=== PATIENT | female | born 1985 | race Caucasian/White ===

== ENCOUNTER 2016-10-06 14:50 | Emergency (ER) | payer OTHER ==
--- NOTE | 2016-10-06 16:35 | DIAGNOSTIC IMAGING REPORT ---
PROCEDURE: CTA THORAX WITH CONTRAST INDICATION: Left-sided chest pain. TECHNIQUE: 88 ml of Isovue 370 was injected intravenously and axial images were obtained of the entire thorax with 3D sagittal and coronal MIP reconstructions. COMPARISON: None. FINDINGS: No evidence of pulmonary emboli. Normal lung parenchyma. Mild bilateral hilar adenopathy. No effusion. Normal thoracic aorta without dissection or aneurysm. Normal heart size. Visualized upper abdomen is unremarkable. No suspicious osseous lesions. IMPRESSION: 1. Normal CT pulmonary foramen 2. Results discussed with Dr. Ferreria
--- NOTE | 2016-10-06 16:35 | ED ORDER SUMMARY ---
..... Patient: SAUL TOSCANO OrderSheet [facility] VisitID: [id number] [address] [place] [address] 31y, F Registration Date/Time: 10/06/2016 ORDER SHEET Weight: 40.8 kg (stated) Allergies: Penicillins, Sulfa Antibiotics GENERAL ORDERS: Chest 2V Urgent (15:08 10/06/2016 PHutchinson DO) (Ack 15:09 TBergley) (16:15 Gene) (Cancelled: Other18:18 TBergley) Electric Installer (Continuous) (15:10/06/2016 PHutchinson DO) (15:09 JDeElena R.N.) (15:09 TBergley) UA-Culture if indicated Urgent (15:10/06/2016 PHutchinson DO) (Ack 15:09 TBergley) (15:28 RMarsden R.N.) Cardiac Panel Stat (15:10/06/2016 PHmochinson DO) (15:09 TBergley) BNP Urgent (15:10/06/2016 PHutchinson DO) (15:09 TBergley) D-Dimer Urgent (15:10/06/2016 PHutchinson DO) (15:09 TBergley) Amylase Urgent (15:10/06/2016 PHutchinson DO) (15:09 TBergley) Lipase Urgent (15:10/06/2016 PHutchinson DO) (15:09 TBergley) Urine Urgent (15:10/06/2016 PHutchinson DO) (Ack 15:09 TBergley) (15:28 RMarsden R.N.) Urine Drug Screen Urgent (15:10/06/2016 PHutchinson DO) (Ack 15:09 TBergley) (15:28 RMarsden R.N.) TSH Urgent (15:10/06/2016 PHutchinson DO) (15:09 TBergley) Pulse oximeter (15:10/06/2016 PHutchinson DO) (15:09 JDeElena R.N.) (15:09 TBergley) EKG - ER Stat (15:08 10/06/2016 [facility]) (15:09 JDeElena R.N.) (15:09 TBergley) Vitals (15:08 10/06/2016 [facility] DO) (15:09 JDeElena R.N.) (15:09 TBergley) Ethyl Alcohol Urgent (15:09 10/06/2016 [facility]) (Ack 15:09 TBergley) (15:31 RMarsden R.N.) CTA Thorax w Cont (No) (BUN and Cr normal) (elevated d-dimer) Urgent (15:46 10/06/2016 [facility]) (Ack 15:48 TBergley) (16:09 RMarsden R.N.) POC - Urine hCG (15:47 10/06/2016 [facility]) (15:47 RMarsden R.N.) MEDICATION ORDERS: Potassium Chloride PO 40 meq (NOW) (16:00 10/06/2016 [facility]) (Ack 16:06 RMarsden R.N.) (16:16 RMarsden R.N.) IV FLUIDS: IV NS with Normal Saline 1 Liter, Folic Acid 1 mg/mL, Multivitamin Concentrate Intravenous 1 amp/L, Thiamine HCl 100 mg/L: initial bolus 1000 mL (1000 mL/hr), then TKO - (NOW) (15:08 10/06/2016 [facility]) (Ack 15:10 JDeElena R.N.) (17:02 JDeElena R.N.) Zofran IV 4 mg (NOW) (15:08 10/06/2016 [facility]) (15:09 JDeElena R.N.) Ativan IV 1 mg (HIGH ALERT MEDICATION, NOW) (15:09 10/06/2016 [facility]) (Ack 15:10 JDeElena R.N.) (15:17 JSimbeck R.N.) ORDER SHEET NOTES: [Electronically signed by Felipe Ferreira DO (21:44 10/06/2016)] [Electronically signed by Carmen Najera R.N. (07:10/07/2016)] [Electronically locked/signed by Carmen Najera R.N. (10/07/2016)]
--- NOTE | 2016-10-06 16:35 | ED NURSING NOTES ---
Clinical Report - Nurses [facility] [address] [place] [address] 10/06/2016 14:51 Patient: SAUL TOSCANO TRIAGE Triage time 14:58. Acuity: LEVEL 3. Chief Complaint: CHEST PAIN and NAUSEA (Reports she is w/d from ETOH. Says she has w/d before. Last drink yesterday. Says she is getting ready to check herself in to treatmetn again.). Alert. SEPSIS SCREEN: Sepsis Screen: negative. Negative (no infection suspected/documented). --15:05 Teodoro Cleveland R.N. 14:57 10/06/16. BP: 174/102 (regular adult cuff) taken on the left arm, via an automated monitor, while lying. HR: 70 (normal rate). RR: 22 (regular, unlabored and normal). O2 saturation: 100% on room air. Temp: 98.8 F (oral). Pain level now: 03/05. --15:05 Teodoro Cleveland R.N. Weight: 40.8 kg stated. Height/Length: 64 inches Per Patient. BMI: 15.5. --15:00 Teodoro Cleveland R.N. Medications PROzac Oral. --14:59 Teodoro Cleveland R.N. KlonoPIN Oral. --14:59 Teodoro Cleveland R.N. Medication/allergy information source: the patient. --15:05 Teodoro Cleveland R.N. Allergies Penicillins. --15:00 Teodoro Cleveland R.N. Sulfa Antibiotics. --15:00 Teodoro Cleveland R.N. History Arrived by private vehicle. Historian: patient. Unaccompanied. Primary physician (None). This started today. 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 (1 pain med cannot recall name). PAST MEDICAL HX: Anxiety. Depression. Uses an intrauterine device. SOCIAL HX: Current every day heavy tobacco smoker (cigarette)- less than 1 pack per day. Heavy alcohol use. History of drug use: marijuana. She has not traveled outside the [place] The patient was not exposed to MRSA. ABUSE ASSESSMENT: Abuse assessment: The patient was asked "Do you feel safe in your home?" and "Has anyone hurt you or threatened to hurt you?". No report of abuse. SELF HARM ASSESSMENT: A self harm assessment was performed. The patient answered "yes" to the question "Have you recently felt down, depressed, or hopeless?", "Have you noticed less interest or pleasure in doing things?" and "Do you have thoughts of harming or killing yourself?" and "no" to the question "Are you here because you tried to hurt yourself?", "Have you ever tried to hurt yourself before today?" and "Have you recently had thoughts about harming or killing others?". (Just got out of her relationship with her fiance which spurred the drinking.). FALL RISK ASSESSMENT: Fall risk assessment completed. No fall risk identified. NUTRITIONAL RISK ASSESSMENT: The nutritional risk assessment revealed no deficiencies. LEARNING NEEDS ASSESSMENT: The learning needs assessment revealed no barriers. FUNCTIONAL ASSESSMENT: Functional assessment performed: wears glasses- this visual impairment is an ongoing problem. SKIN INTEGRITY ASSESSMENT: Skin integrity risk assessment completed. No skin integrity risk identified. --15:05 Teodoro Cleveland R.N. PROBLEMS: Depression. Anxiety Reaction. --15:00 Teodoro Cleveland R.N. ADDITIONAL SURGERIES: . Cyst Removal. --15:00 Teodoro Cleveland R.N. Assessment GENERAL / NEURO / PSYCH: Alert. Oriented X 4. Appears anxious and in distress. [place] Coma Scale: 15- eyes open spontaneously (4); best verbal response- oriented x 4 (5); best motor response- obeys commands (6). Patient appears calm and cooperative. RESPIRATORY: No respiratory distress. Respirations not labored. SKIN: Skin is warm and dry. --15:05 Teodoro Cleveland R.N. Interventions ID band on patient. To treatment room. --15:05 Teodoro Cleveland R.N. 15:03 10/06/2016 Site #1 started via IV in the right antecubital space with an 20g angiocath, with aseptic technique and good blood return; one attempt. Blood drawn: rainbow set. Labeled in the presence of the patient and sent to the lab. Saline lock flushed with 10 mL saline. --15:03 Teodoro Cleveland R.N. NURSING PROGRESS NOTES The initial plan of care for this patient has been created This plan of care was discussed with the patient. mule driver, pulse oximeter and NIBP monitor placed on patient; selector packer- Lead II. Patient gowned. Reassurance given to the patient. Two patient identifiers checked. Call light placed in reach. Side rails up x 1. Bed placed in lowest position. Brakes of bed on. Patient ready for evaluation- ED physician and PA notified. --15:05 Teodoro Cleveland R.N. EKG time: (2708). EKG was ordered, performed by a tech and shown to the ED physician and PA. --15:06 Teodoro Cleveland R.N. 15:10/06/2016 Zofran (Ondansetron HCl) IVP 4 mg given over 2 minute(s) via site #1. Allergies verified and confirmed 5 rights. IV patency established. IV site checked: no pain, redness, or swelling. IV flushed thoroughly pre- and post-medication administration. IVP given by RN. --15: Teodoro Cleveland R.N. 15:15 10/06/2016 Ativan (LORazepam) IVP 1 mg given over 1 minute(s) via site #1. Allergies verified, confirmed 5 rights and sedative warning given to the patient. IV patency established. IV site checked: no pain, redness, or swelling. IV flushed thoroughly pre- and post-medication administration. IVP given by RN. --15:17 Zachary Perez R.N. 15:15 10/06/16. BP: 113/52 (regular adult cuff) taken on the left arm, while sitting. --15:19 Zachary Perez R.N. Patient ID band checked for patient name and birthdate: patient confirmed. Instructions provided to collect clean catch urine and patient verbalized understanding. Clean catch urine collected with return of yellow-colored clear urine; sample sent to lab for urinalysis. Specimen labeled in the presence of the patient. --15:29 Carmen Najera R.N. 15:30 10/06/16. Patient informed about reason for wait and about plan of care. --15:30 Carmen Najera R.N. 15:50 10/06/16. BP: 124/79. HR: 80. RR: 12. O2 saturation: 99%. Pain level now: 0/10. Additional comments: Patient states she has some dental pain. --15:52 Carmen Najera R.N. 13:27. Urine test negative; lot #: [id number]. --16:10 Carmen Najera R.N. 15:33 10/06/2016 Ativan IVP Response: no adverse reaction symptoms have improved the patient feels better. --07:19 Carmen Najera R.N. 15:56 10/06/16. Patient walked to AL with tech. ( Patient given ice water.). --15:57 Carmen Najera R.N. 16:16 10/06/2016 Potassium Chloride (Potassium Chloride ER) PO Tablets 40 meq given. Allergies verified and confirmed 5 rights. --16:16 Carmen Najera R.N. 16:37 10/06/2016 Potassium Chloride PO Response: no adverse reaction symptoms are the same. The patient feels the same. --07:20 Carmen Najera R.N. 17:02 10/06/2016 Started bag #1 1000 mL IV Fluids IV NS (Saline); at 1000 mL/hr with Folic Acid [IVPB] 1mg, Multivitamin [IVPB] 1per protocol and Thiamine [IVP] 100mg over 1 hour(s) via site #1. Allergies verified and confirmed 5 rights. IV patency established. IV site checked: no pain, redness, or swelling. IV flushed thoroughly pre- and post-medication administration. Completed per protocol. --17:02 Teodoro Cleveland R.N. Patient informed about reason for wait and about plan of care. --17:30 Carmen Najera R.N. 17:46 10/06/16. --17:46 Ada Manley R.N. 17:30 10/06/16. BP: 133/90. HR: 82. RR: 17. O2 saturation: 99% on room air. --17:46 Ada Manley R.N. 18:08 10/06/2016 IV Fluids IV NS Discontinued: bag #1 completed upon discharge. Total amount infused: 1000 mL. IV patency established. IV site checked: no pain, redness, or swelling. IV flushed thoroughly. --07:18 Carmen Najera R.N. DISPOSITION / DISCHARGE 18:10. No learning barriers present. Discharge instructions provided and reviewed with the patient. Reviewed warnings. Reviewed medication(s). Treatments reviewed. Reviewed referrals. Patient verbalized understanding. Written instructions provided in Romanian. The patient was discharged by the physician. She was discharged home and accompanied by accountant bookkeeper. She left the Emergency Department ambulatory and via private vehicle. Platform Material Handling Supervisor driving. --07:13 Carmen Najera R.N. 07:11 10/06/16. BP: 132/73. HR: 86. RR: 16. O2 saturation: 100%. Temp: deferred. Pain level now: 0/10. --07:13 Carmen Najera R.N. ( Patient departed at 18:10 on 10/06/2016.). --07:14 Carmen Najera R.N. 18:08 10/06/2016 Site #1 removed upon discharge. Manual pressure and bandaid applied. --07:18 Carmen Najera R.N. Locked/Released at 10/07/2016 7:20 by Carmen Najera R.N.
--- NOTE | 2016-10-06 16:35 | ED NURSING NOTES ---
Clinical Report - Nurses [facility] [address] [place] [address] 10/06/2016 14:51 Patient: SAUL TOSCANO TRIAGE Triage time 14:58. Acuity: LEVEL 3. Chief Complaint: CHEST PAIN and NAUSEA (Reports she is w/d from ETOH. Says she has w/d before. Last drink yesterday. Says she is getting ready to check herself in to treatmetn again.). Alert. SEPSIS SCREEN: Sepsis Screen: negative. Negative (no infection suspected/documented). --15:05 Teodoro Cleveland R.N. 14:57 10/06/16. BP: 174/102 (regular adult cuff) taken on the left arm, via an automated monitor, while lying. HR: 70 (normal rate). RR: 22 (regular, unlabored and normal). O2 saturation: 100% on room air. Temp: 98.8 F (oral). Pain level now: 03/05. --15:05 Teodoro Cleveland R.N. Weight: 40.8 kg stated. Height/Length: 64 inches Per Patient. BMI: 15.5. --15:00 Teodoro Cleveland R.N. Medications PROzac Oral. --14:59 Teodoro Cleveland R.N. KlonoPIN Oral. --14:59 Teodoro Cleveland R.N. Medication/allergy information source: the patient. --15:05 Teodoro Cleveland R.N. Allergies Penicillins. --15:00 Teodoro Cleveland R.N. Sulfa Antibiotics. --15:00 Teodoro Cleveland R.N. History Arrived by private vehicle. Historian: patient. Unaccompanied. Primary physician (None). This started today. 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 (1 pain med cannot recall name). PAST MEDICAL HX: Anxiety. Depression. Uses an intrauterine device. SOCIAL HX: Current every day heavy tobacco smoker (cigarette)- less than 1 pack per day. Heavy alcohol use. History of drug use: marijuana. She has not traveled outside the [place] The patient was not exposed to MRSA. ABUSE ASSESSMENT: Abuse assessment: The patient was asked "Do you feel safe in your home?" and "Has anyone hurt you or threatened to hurt you?". No report of abuse. SELF HARM ASSESSMENT: A self harm assessment was performed. The patient answered "yes" to the question "Have you recently felt down, depressed, or hopeless?", "Have you noticed less interest or pleasure in doing things?" and "Do you have thoughts of harming or killing yourself?" and "no" to the question "Are you here because you tried to hurt yourself?", "Have you ever tried to hurt yourself before today?" and "Have you recently had thoughts about harming or killing others?". (Just got out of her relationship with her fiance which spurred the drinking.). FALL RISK ASSESSMENT: Fall risk assessment completed. No fall risk identified. NUTRITIONAL RISK ASSESSMENT: The nutritional risk assessment revealed no deficiencies. LEARNING NEEDS ASSESSMENT: The learning needs assessment revealed no barriers. FUNCTIONAL ASSESSMENT: Functional assessment performed: wears glasses- this visual impairment is an ongoing problem. SKIN INTEGRITY ASSESSMENT: Skin integrity risk assessment completed. No skin integrity risk identified. --15:05 Teodoro Cleveland R.N. PROBLEMS: Depression. Anxiety Reaction. --15:00 Teodoro Cleveland R.N. ADDITIONAL SURGERIES: . Cyst Removal. --15:00 Teodoro Cleveland R.N. Assessment GENERAL / NEURO / PSYCH: Alert. Oriented X 4. Appears anxious and in distress. [place] Coma Scale: 15- eyes open spontaneously (4); best verbal response- oriented x 4 (5); best motor response- obeys commands (6). Patient appears calm and cooperative. RESPIRATORY: No respiratory distress. Respirations not labored. SKIN: Skin is warm and dry. --15:05 Teodoro Cleveland R.N. Interventions ID band on patient. To treatment room. --15:05 Teodoro Cleveland R.N. 15:03 10/06/2016 Site #1 started via IV in the right antecubital space with an 20g angiocath, with aseptic technique and good blood return; one attempt. Blood drawn: rainbow set. Labeled in the presence of the patient and sent to the lab. Saline lock flushed with 10 mL saline. --15:03 Teodoro Cleveland R.N. NURSING PROGRESS NOTES The initial plan of care for this patient has been created This plan of care was discussed with the patient. ekg monitor tech, pulse oximeter and NIBP monitor placed on patient; child monitor- Lead II. Patient gowned. Reassurance given to the patient. Two patient identifiers checked. Call light placed in reach. Side rails up x 1. Bed placed in lowest position. Brakes of bed on. Patient ready for evaluation- ED physician and PA notified. --15:05 Teodoro Cleveland R.N. EKG time: (6158). EKG was ordered, performed by a tech and shown to the ED physician and PA. --15:06 Teodoro Cleveland R.N. 15:10/06/2016 Zofran (Ondansetron HCl) IVP 4 mg given over 2 minute(s) via site #1. Allergies verified and confirmed 5 rights. IV patency established. IV site checked: no pain, redness, or swelling. IV flushed thoroughly pre- and post-medication administration. IVP given by RN. --15: Teodoro Cleveland R.N. 15:15 10/06/2016 Ativan (LORazepam) IVP 1 mg given over 1 minute(s) via site #1. Allergies verified, confirmed 5 rights and sedative warning given to the patient. IV patency established. IV site checked: no pain, redness, or swelling. IV flushed thoroughly pre- and post-medication administration. IVP given by RN. --15:17 Zachary Perez R.N. 15:15 10/06/16. BP: 113/52 (regular adult cuff) taken on the left arm, while sitting. --15:19 Zachary Perez R.N. Patient ID band checked for patient name and birthdate: patient confirmed. Instructions provided to collect clean catch urine and patient verbalized understanding. Clean catch urine collected with return of yellow-colored clear urine; sample sent to lab for urinalysis. Specimen labeled in the presence of the patient. --15:29 Carmen Najera R.N. 15:30 10/06/16. Patient informed about reason for wait and about plan of care. --15:30 Carmen Najera R.N. 15:50 10/06/16. BP: 124/79. HR: 80. RR: 12. O2 saturation: 99%. Pain level now: 0/10. Additional comments: Patient states she has some dental pain. --15:52 Carmen Najera R.N. 13:27. Urine test negative; lot #: [id number]. --16:10 Carmen Najera R.N. 15:33 10/06/2016 Ativan IVP Response: no adverse reaction symptoms have improved the patient feels better. --07:19 Carmen Najera R.N. 15:56 10/06/16. Patient walked to [place] with tech. ( Patient given ice water.). --15:57 Carmen Najera R.N. 16:16 10/06/2016 Potassium Chloride (Potassium Chloride ER) PO Tablets 40 meq given. Allergies verified and confirmed 5 rights. --16:16 Carmen Najera R.N. 16:37 10/06/2016 Potassium Chloride PO Response: no adverse reaction symptoms are the same. The patient feels the same. --07:20 Carmen Najera R.N. 17:02 10/06/2016 Started bag #1 1000 mL IV Fluids IV NS (Saline); at 1000 mL/hr with Folic Acid [IVPB] 1mg, Multivitamin [IVPB] 1per protocol and Thiamine [IVP] 100mg over 1 hour(s) via site #1. Allergies verified and confirmed 5 rights. IV patency established. IV site checked: no pain, redness, or swelling. IV flushed thoroughly pre- and post-medication administration. Completed per protocol. --17:02 Teodoro Cleveland R.N. Patient informed about reason for wait and about plan of care. --17:30 Carmen Najera R.N. 17:46 10/06/16. --17:46 Ada Manley R.N. 17:30 10/06/16. BP: 133/90. HR: 82. RR: 17. O2 saturation: 99% on room air. --17:46 Ada Manley R.N. 18:08 10/06/2016 IV Fluids IV NS Discontinued: bag #1 completed upon discharge. Total amount infused: 1000 mL. IV patency established. IV site checked: no pain, redness, or swelling. IV flushed thoroughly. --07:18 Carmen Najera R.N. DISPOSITION / DISCHARGE 18:10. No learning barriers present. Discharge instructions provided and reviewed with the patient. Reviewed warnings. Reviewed medication(s). Treatments reviewed. Reviewed referrals. Patient verbalized understanding. Written instructions provided in Palauan. The patient was discharged by the physician. She was discharged home and accompanied by business systems architect. She left the Emergency Department ambulatory and via private vehicle. Director Of Graduate Admissions driving. --07:13 Carmen Najera R.N. 07:11 10/06/16. BP: 132/73. HR: 86. RR: 16. O2 saturation: 100%. Temp: deferred. Pain level now: 0/10. --07:13 Carmen Najera R.N. ( Patient departed at 18:10 on 10/06/2016.). --07:14 Carmen Najera R.N. 18:08 10/06/2016 Site #1 removed upon discharge. Manual pressure and bandaid applied. --07:18 Carmen Najera R.N. Locked/Released at 10/07/2016 7:20 by Carmen Najera R.N.
--- NOTE | 2016-10-06 16:35 | ED ORDER SUMMARY ---
..... Patient: SAUL TOSCANO OrderSheet [facility] VisitID: [id number] [address] [place] [address] 31y, F Registration Date/Time: 10/06/2016 ORDER SHEET Weight: 40.8 kg (stated) Allergies: Penicillins, Sulfa Antibiotics GENERAL ORDERS: Chest 2V Urgent (15:08 10/06/2016 PHutchinson DO) (Ack 15:09 TBergley) (16:15 Gene) (Cancelled: Other18:18 TBergley) Manager Web (Continuous) (15:10/06/2016 PHutchinson DO) (15:09 JDeElena R.N.) (15:09 TBergley) UA-Culture if indicated Urgent (15:10/06/2016 PHutchinson DO) (Ack 15:09 TBergley) (15:28 RMarsden R.N.) Cardiac Panel Stat (15:10/06/2016 PHohchinson DO) (15:09 TBergley) BNP Urgent (15:10/06/2016 PHutchinson DO) (15:09 TBergley) D-Dimer Urgent (15:10/06/2016 PHutchinson DO) (15:09 TBergley) Amylase Urgent (15:10/06/2016 PHutchinson DO) (15:09 TBergley) Lipase Urgent (15:10/06/2016 PHutchinson DO) (15:09 TBergley) Urine Urgent (15:10/06/2016 PHutchinson DO) (Ack 15:09 TBergley) (15:28 RMarsden R.N.) Urine Drug Screen Urgent (15:10/06/2016 PHutchinson DO) (Ack 15:09 TBergley) (15:28 RMarsden R.N.) TSH Urgent (15:10/06/2016 PHutchinson DO) (15:09 TBergley) Pulse oximeter (15:10/06/2016 PHutchinson DO) (15:09 JDeElena R.N.) (15:09 TBergley) EKG - ER Stat (15:08 10/06/2016 [facility]) (15:09 JDeElena R.N.) (15:09 TBergley) Vitals (15:08 10/06/2016 [facility] DO) (15:09 JDeElena R.N.) (15:09 TBergley) Ethyl Alcohol Urgent (15:09 10/06/2016 [facility]) (Ack 15:09 TBergley) (15:31 RMarsden R.N.) CTA Thorax w Cont (No) (BUN and Cr normal) (elevated d-dimer) Urgent (15:46 10/06/2016 [facility]) (Ack 15:48 TBergley) (16:09 RMarsden R.N.) POC - Urine hCG (15:47 10/06/2016 [facility]) (15:47 RMarsden R.N.) MEDICATION ORDERS: Potassium Chloride PO 40 meq (NOW) (16:00 10/06/2016 [facility]) (Ack 16:06 RMarsden R.N.) (16:16 RMarsden R.N.) IV FLUIDS: IV NS with Normal Saline 1 Liter, Folic Acid 1 mg/mL, Multivitamin Concentrate Intravenous 1 amp/L, Thiamine HCl 100 mg/L: initial bolus 1000 mL (1000 mL/hr), then TKO - (NOW) (15:08 10/06/2016 [facility]) (Ack 15:10 JDeElena R.N.) (17:02 JDeElena R.N.) Zofran IV 4 mg (NOW) (15:08 10/06/2016 [facility]) (15:09 JDeElena R.N.) Ativan IV 1 mg (HIGH ALERT MEDICATION, NOW) (15:09 10/06/2016 [facility]) (Ack 15:10 JDeElena R.N.) (15:17 JSimbeck R.N.) ORDER SHEET NOTES: [Electronically signed by Felipe Ferreira DO (21:44 10/06/2016)] [Electronically signed by Carmen Najera R.N. (07:10/07/2016)] [Electronically locked/signed by Carmen Najera R.N. (10/07/2016)]
--- NOTE | 2016-10-06 16:35 | ED CLINICAL REPORT ---
Clinical Report - Physicians/Mid Levels [facility] [address] [place] [address] 10/06/2016 14:51 Patient: SAUL TOSCANO Time Seen: 15:07. Arrived- By private vehicle. Historian- patient. HISTORY OF PRESENT ILLNESS Chief Complaint: CHEST PAIN and NAUSEA ALCOHOL WITHDRAWAL. This started today and is still present. It was gradual in onset and has been waxing/waning. At its maximum, severity described as moderate. When seen in the E.D., severity described as moderate. Modifying factors. Not worsened by anything. Not relieved by anything. No headache. She has had fatigue and weakness. (Pt states she is having a typical panic attack for her and has come to the ED to "feel safe". She states she "always" has CP with her panic attacks.). Similar symptoms previously: Many times. Recent medical care: Not recently seen/assessed. REVIEW OF SYSTEMS No fever, sore throat, sinus drainage, nasal congestion or difficulty breathing. No abdominal pain, nausea, vomiting, diarrhea or bloody stools. No difficulty with urination, abnormal bleeding, skin rash, back pain or headache. The patient has had chest pain. No difficulty with ambulation. All systems otherwise negative, except as recorded above. PAST HISTORY Sees [facility] for psychiatric services PROBLEMS: Depression. Anxiety Reaction. SURGERIES: . Cyst Removal. Medications: KlonoPIN Oral. PROzac Oral. Allergies: Penicillins. Sulfa Antibiotics. SOCIAL HISTORY Smoker- current status unknown. Regular heavy alcohol use. Last drink was less than 24 hours ago. Patient is a longstanding alcoholic. History of drug use: marijuana. ADDITIONAL NOTES The nursing notes have been reviewed. PHYSICAL EXAM Vital Signs: 10/06/2016 15:15 BP: 113/52. 10/06/2016 14:57 BP: 174/102. HR: 70. RR: 22. O2 saturation: 100%. Temp: 98.8 F. Pain level now: 10/10. Appearance: Alert. Anxious. Patient in moderate distress. Eyes: Eyes normal inspection. No scleral icterus or pale conjunctivae. ENT: Pharynx normal. No pharyngeal erythema or tonsillar exudate. The mucous membranes are not dry. Neck: Normal inspection. Neck supple. CVS: Normal heart rate and rhythm. Heart sounds normal. Pulses normal. Respiratory: No respiratory distress. Breath sounds normal. Abdomen: No visible injury. Soft and nontender. No mass. Back: Normal inspection. Skin: Skin warm and dry. Normal skin color. No rash. Normal skin turgor. Extremities: Extremities exhibit normal ROM. No calf tenderness. No lower extremity edema. Neuro: Oriented X 3. No motor deficit. No sensory deficit. LABS, X-RAYS, AND EKG EKG: EKG time: (15:08). Normal sinus rhythm. Rate: 65. Normal P waves. Normal GERA. Normal QRS complex. Normal axis. Normal ST and T waves. The study has been interpreted contemporaneously by me. The EKG appears to be a good tracing. Rhythm Strip #1: Normal sinus rhythm. Regular rhythm. Narrow QRS complexes. No ectopy. CTA Pulmonary Arteries: Normal study. Great vessels normal. No evidence of pulmonary embolism. Normal heart size. Mediastinum normal. Lungs normal. The CTA was performed with contrast. The study was independently viewed by me, interpreted by the radiologist and discussed with the radiologist. Laboratory Tests: UA-Culture if indicated: (AKIRA: 10/06/2016 15:20) ( MsgRcvd 10/06/2016 16:15) Final results Test Result Flag Units (Reference) URINE COLOR YELLOW URINE APPEARANCE SL CLOUDY URINE GLUCOSE NEGATIVE (NEGATIVE) URINE BILIRUBIN NEGATIVE (NEGATIVE) URINE KETONE 1+ (NEGATIVE) URINE SPECIFIC GRAVITY 1.025 (1.010-1.030) URINE PH 6.0 (5.0-8.0) URINE PROTEIN 2+ (NEGATIVE) URINE UROBILINOGEN 0.2 EU/dL (0.2-1.0) URINE NITRITE NEGATIVE (NEGATIVE) URINE BLOOD 1+ (NEGATIVE) URINE LEUK ESTERASE NEGATIVE (NEGATIVE) URINE RBC 3-5 rbc/hpf (0-1) URINE WBC 0-1 wbc/hpf (0-1) URINE EPITHELIAL CELLS 10-15 EPI/hpf (0-5) URINE BACTERIA NONE SEEN (NONE SEEN) URINE COMMENT CULT NOT INDICATED 2+ MUCUSURINE CULTURES ARE SET-UP BASED ON THE FOLLOWING CRITERIA:POSITIVE NITRITEPOSITIVE LEUKOCYTE ESTERASEGREATER THAN 10 WHITE BLOOD CELLSMODERATE (2+) OR GREATER BACTERIA Urine: (AKIRA: 10/06/2016 15:20) ( [facility] 10/06/2016 15:52) Final results Test Result Flag Units (Reference) URINE NEGATIVE CBC w Diff: (AKIRA: 10/06/2016 15:00) ( [facility] 10/06/2016 15:25) Final results Test Result Flag Units (Reference) WHITE BLOOD COUNT 4.9 K/uL (4.5-11.5) RED BLOOD COUNT 4.05 M/uL (4.00-5.20) HEMOGLOBIN 13.7 gm/dL (12.0-16.0) HEMATOCRIT 40.5 % (36.0-46.0) MEAN CELL VOLUME 100 fL (80-100) MEAN CORPUSCULAR HGB 34 pg (26-34) MEAN CORPUSCULAR HGB CONC 34 g/dL (31-37) RED CELL DISTRIBUTION WIDTH 14.1 % (11.6-14.8) PLATELET COUNT 213 K/uL (150-400) NEUTROPHIL % 73.2 % (50-75) LYMPH % 19.2 L % (25-40) MONO % 6.1 % (3-14) EOSINOPHIL % 0.3 % (0-4) BASOPHIL % 1.2 % (0-2) [id number]: (AKIRA: 10/06/2016 15:00) ( [facility] 10/06/2016 15:44) Final results Test Result Flag Units (Reference) D-DIMER QUANTITATIVE 1.20 H ug/mLFEU (0.27-0.52) The primary value of this quantitative assay relates toits negative predictive value (i.e. exclusion) of pulmonaryembolism/deep vein thrombosis/DIC.Elevated levels of d-dimer may also occur with:, age, cancer, inflammation, liver disease,post-op, infection, hematoma, coronary disease, peripheralarteriopathy, bleeding disorders and thrombolytic treatment.Results should be correlated with other clinical andradiological data.Testing Methodology: Latex Immunoassay Ethyl Alcohol: (AKIRA: 10/06/2016 15:00) ( [facility] 10/06/2016 15:54) Final results Test Result Flag Units (Reference) ETHYL ALCOHOL 11 H mg/dL (3-10) Urine Drug Screen: (AKIRA: 10/06/2016 15:20) ( [facility] 10/06/2016 15:54) Final results Test Result Flag Units (Reference) AMPHETAMINE/METHAMPHETAMINE NEGATIVE (NEGATIVE) BARBITURATE NEGATIVE (NEGATIVE) BENZODIAZEPINE NEGATIVE (NEGATIVE) CANNABINOID POSITIVE H (NEGATIVE) COCAINE NEGATIVE (NEGATIVE) ECSTASY NEGATIVE (NEGATIVE) METHADONE NEGATIVE (NEGATIVE) OPIATE NEGATIVE (NEGATIVE) The urine drug screen is a qualitative screening test fordrug overdose and abuse. All screen results should beconsidered as presumptive.Drugs screened for are as follows:BenzodiazepinesCocaineAmphetamines/MetamphetaminesTHC (Tetrahydrocannabinol)OpiatesBarbituratesEcstasyMethadonePositive results are unconfirmed. For confirmation, notifythe lab for the specimen to be sent to the reference lab.All confirmations must be performed by a differentmethodology.The ingestion of natural herbal and plant productscontaining Ephedra/Ephedra metabolites can produce in urineone or more substances capable of cross reacting withamphetamine/methamphetamine immunoassays. These testsprovide a preliminary result only. A more specificalternative chemical method must be used to obtain aconfirmed analytical result. BNP: (AKIRA: 10/06/2016 15:00) ( [facility] 10/06/2016 15:52) Final results Test Result Flag Units (Reference) B-TYPE NATRIURETIC PEPTIDE 22.5 pg/ml (5-100) CHEM 13 PANEL: (AKIRA: 10/06/2016 15:00) ( [facility] 10/06/2016 16:20) Final results Test Result Flag Units (Reference) GLUCOSE 88 mg/dL (70-110) BUN 10 mg/dL (7-18) CREATININE 0.5 L mg/dL (0.6-1.3) Estimated GFR >60 mL/min Estimated GFR- >60 mL/min Note: Persistent reduction over 3 months in eGFR<60 mL/min/1.73 m2 defines CKD. Patients with eGFR values>=60 mL/min/1.73 m2 may also have CKD if evidence ofpersistent proteinuria. Additional information may be foundat [email or web address].org. SODIUM 142 mmol/L (136-145) POTASSIUM 3.2 L mmol/L (3.5-5.1) CHLORIDE 102 mmol/L (98-107) CARBON DIOXIDE 27 mmol/L (21-32) CALCIUM 8.6 mg/dL (8.5-10.1) TOTAL PROTEIN 8.5 H g/dL (6.4-8.2) ALBUMIN 4.5 g/dL (3.3-5.0) BILIRUBIN, TOTAL 0.9 mg/dL (0.0-1.0) ALKALINE PHOSPHATASE 115 U/L (46-116) AST (SGOT) 44 H U/L (15-37) ALT (SGPT) 41 U/L (12-78) CPK 322 H U/L (24-260) MAGNESIUM 1.6 L mg/dL (1.8-2.4) LIPASE 120 U/L (73-393) AMYLASE 48 U/L (25-115) CK-MB 2.4 ng/mL (0.5-3.2) %CKMB 0.7 % (0.0-4.0) TROPONIN I <0.05 L ng/mL (0.00-1.5) TROPONIN REFERENCE RANGE:<0.1 NEGATIVE0.1-1.5 INDETERMINANT>1.5 POSITIVE THYROID STIMULATING HORMONE 1.375 uIU/mL (0.34-3.74) . Pulse Oximetry: 10/06/2016 14:57 O2 saturation: 100%. (FIO2 - room air). Interpretation: normal. PROGRESS AND PROCEDURES Course of Care: Normal Saline 1 liter with thiamine 100mg + folate 1mg + 1 amp MVI IVPB given. Ativan 1mg IVP given. Potassium Chloride 40 meq PO given. Zofran 4 mg IVP given. 16:00 10/06/16. Patient is stable. Physical exam findings are improved. Symptoms much better. 10/06/2016 17:30 BP: 133/90. HR: 82. RR: 17. O2 saturation: 99%. 10/06/2016 17:00 BP: 123/77. HR: 76. RR: 15. O2 saturation: 99%. Patient/family counseled. Disposition: Discharged. Condition: stable and improved. CLINICAL IMPRESSION Precordial chest pain characterized as "discomfort" .12 lead EKG performed. Essential hypertension. Panic attack Chronic substance abuse- alcohol, marijuana with anxiety. Alcohol withdrawal with agitation. No delirium, hallucinations or delirium tremens. INSTRUCTIONS Do not work for two days. Drink plenty of fluids. No alcohol. Seek medical help to quit drinking. Warnings: Further evaluation is necessary. It is very important to follow up with a physician. GENERAL WARNINGS: Return or contact your physician immediately if your condition worsens or changes unexpectedly, if not improving as expected, or if other problems arise. Prescription Medications: Ativan 1 mg: Take 1 orally every 8 hours as needed for anxiety. Dispense fifteen (15). No refills. Substitution is permissible. OTC Medications: Acetaminophen (available over the counter): take according to label instructions. Follow-up: Follow up with a specialist PLEASE GO TO DETOX / TREATMENT TOMORROW. Screening today revealed the patient's blood pressure to be in the hypertensive range. The patient should follow up with a primary care provider for blood pressure management. (Electronically signed by Felipe Ferreira DO 10/06/2016 21:44)
--- NOTE | 2016-10-07 07:21 | ED MAR SUMMARY ---
..... Medication Administration Record [facility] [address] [address] Patient: SAUL TOSCANO Visit ID: [id number] 31y, F Weight: 40.8 kg Height/Length: 64 in BMI: 15.5 ALLERGIES: Sulfa Antibiotics, Penicillins Given 15:09 10/06/2016 Teodoro Cleveland R.N. Medication Administered: ZOFRAN [IVP] (ONDANSETRON HCL), Dose: 4 mg IVP over 2 minute(s), Site: #1 right AC. Medication Ordered: Zofran IV 4 mg (NOW). Given 15:15 10/06/2016 Zachary Perez R.N. Medication Administered: ATIVAN [IVP] (LORAZEPAM), Dose: 1 mg IVP over 1 minute(s), Site: #1 right AC. Medication Ordered: Ativan IV 1 mg (HIGH ALERT MEDICATION, NOW). Given 16:16 10/06/2016 Carmen Najera R.N. Medication Administered: POTASSIUM CHLORIDE [PO] (POTASSIUM CHLORIDE ER), Dose: 40 meq Tablets PO. Medication Ordered: Potassium Chloride PO 40 meq (NOW). Start 17:02 10/06/2016 Teodoro Cleveland R.N., Stop 18:08 10/06/2016 Carmen Najera R.N. Medication Administered: IV NS (SALINE), Dose: IV Fluids over 1 hour(s), With: FOLIC ACID [IVPB] 1 mg; MULTIVITAMIN [IVPB] 1 per protocol; THIAMINE [IVP] 100 mg, Rate: 1000 mL/hr, Dispensed: 1000 mL bag, Site: #1 right AC. Medication Ordered: IV NS with Normal Saline 1 Liter, Folic Acid 1 mg/mL, Multivitamin Concentrate Intravenous 1 amp/L, Thiamine HCl 100 mg/L: initial bolus 1000 mL (1000 mL/hr), then TKO - (NOW).
--- NOTE | 2016-10-07 07:21 | ED DISCHARGE INSTRUCTIONS ---
Patient: SAUL TOSCANO General Instructions [facility] VisitID: [id number] [place] [address] 31y, F Registration Date/Time: 10/06/2016 Precordial chest pain characterized as "discomfort" .12 lead EKG performed. Essential hypertension. Panic attack Chronic substance abuse- alcohol, marijuana with anxiety. Alcohol withdrawal with agitation. No delirium, hallucinations or delirium tremens. INSTRUCTIONS Do not work for two days. Drink plenty of fluids. No alcohol. Seek medical help to quit drinking. Warnings: Further evaluation is necessary. It is very important to follow up with a physician. GENERAL WARNINGS: Return or contact your physician immediately if your condition worsens or changes unexpectedly, if not improving as expected, or if other problems arise. Prescription Medications: Ativan 1 mg: Take 1 orally every 8 hours as needed for anxiety. Dispense fifteen (15). No refills. Substitution is permissible. OTC Medications: Acetaminophen (available over the counter): take according to label instructions. Follow-up: Follow up with a specialist PLEASE GO TO DETOX / TREATMENT TOMORROW. Screening today revealed the patient's blood pressure to be in the hypertensive range. The patient should follow up with a primary care provider for blood pressure management. ADDITIONAL INFORMATION High Blood Pressure -- To Be Confirmed [No Tx] Your blood pressure was higher today than normal. Sometimes anxiety or pain can cause a temporary rise in blood pressure that later returns to normal. If your blood pressure is high on one measurement, this does not mean that you have hypertension (a chronic illness). However, you must have your blood pressure measured again within the next few days to find out if its still high. A normal blood pressure is 120/80 or less. The first (top) number is the "systolic" pressure. The second (bottom) number is the "diastolic" pressure. Hypertension exists when either the top number is 140 or higher, OR the bottom number is 90 or higher on repeated measurements. Blood pressure in the range of 120-140 (systolic) or 80-89 (diastolic) is considered "pre-hypertension". This means your are at risk for getting hypertension. You should have regular blood pressure checks to be sure your blood pressure is not rising. Home Care: Measure your blood pressure on 3 different days and write down the results. This can be done at your doctor's office or this facility. Some pharmacies and grocery stores offer automated blood pressure machines for your use. Follow Up: If your blood pressure is "high" (over 120/80) on 2 out of 3 days, you will need to follow up with your doctor for further evaluation and treatment. DO NOT PUT THIS OFF! Untreated high blood pressure increases the risk for heart attack, also known as acute myocardial infarction, or AMI, and stroke. It is a treatable condition. Get Prompt Medical Attention if any of the following occur: Chest pain or shortness of breath Severe headache Throbbing or rushing sound in the ears Nosebleed Sudden severe abdominal pain Extreme drowsiness, confusion or fainting Dizziness or vertigo (dizziness with spinning sensation) Weakness of an arm or leg or one side of the face Difficulty with speech or vision Chest Pain, Noncardiac Based on your visit today, the exact cause of your chest pain is not certain. Your condition does not seem serious and your pain does not appear to be coming from your heart. However, sometimes the signs of a serious problem take more time to appear. Therefore, please watch for the warning signs listed below. Home Care: Rest today and avoid strenuous activity. Take any prescribed medicine as directed. Follow Up with your doctor or this facility as instructed or if you do not start to feel better within 24 hours. Get Prompt Medical Attention if any of the following occur: A change in the type of pain: if it feels different, becomes more severe, lasts longer, or begins to spread into your shoulder, arm, neck, jaw or back Shortness of breath or increased pain with breathing Cough with dark colored sputum (phlegm) or blood Weakness, dizziness, or fainting Fever of 100.4F (38C) or higher, or as directed by your healthcare provider Swelling, pain or redness in one leg Panic Attack A panic attack is an extreme fear reaction that comes on for no apparent reason. Symptoms may include pounding or racing heartbeat, shortness of breath, dizziness, weakness and sweating. There is usually a fear that something terrible will happen or that you may . The attack may last a few minutes up to a few hours. Between attacks things will seem quite normal. This condition has a psychological cause and can be treated with the help of a therapist or psychiatrist. Medication is often used and can be very helpful for this problem. Home Care: Try to identify the sources of stress in your life. It may not be obvious! These may include: Daily hassles of life which pile up (traffic jams, missed appointments, car troubles, etc.). Major life changes, both good (new baby, job promotion) and bad (loss of job, loss of loved one). Overload: feeling that you have too many responsibilities and can't take care of everything at once. Helplessness: feeling like your problems are too much for you to handle. Notice how your body reacts to stress. Learn to listen to your body signals so that you can take action before the stress becomes severe. When possible, AVOID or REDUCE THE CAUSE OF STRESS. Avoid hassles, limit the amount of change that is happening in your life at one time or take a break when you feel overloaded. Unfortunately, many stressful situations cannot be avoided. Therefore, it is necessary to LEARN HOW TO MANAGE STRESS better. There are many proven methods that work and will reduce your anxiety. These include simple things like exercise, good nutrition and adequate rest. Also, there are certain techniques that are helpful: relaxation and breathing exercises, visualization, biofeedback, meditation or simply taking some time-out to clear your mind. For more information about this, consult your doctor or go to a local bookstore and review the many books and tapes available on this subject. Follow Up with your doctor or a therapist as advised. Get Prompt Medical Attention if any of the following occur: Worsening of your symptoms to the point of feeling [id number] A change in the type of pain: if it feels different, becomes more severe, lasts longer, or begins to spread into your shoulder, arm, neck, jaw or back Shortness of breath or increased pain with breathing Increasing feeling of weakness or dizziness Fainting Cough with dark colored sputum (phlegm) or blood Fever of 100.4F (38C) or higher, or as directed by your healthcare provider Swelling, pain or redness in one leg Hyperventilation Syndrome Hyperventilation Syndrome is a condition in which you lose control of your breathing. You may find yourself breathing too fast and/or too deep. This can be triggered by pain, anxiety and emotional stress. If hyperventilation continues for more than a few minutes, it can lead to a number of frightening symptoms, such as: Numbness and tingling of the hands, feet and face Clenching of the fingers or toes Dizziness Feeling like you cannot get enough air Chest pains Fainting or feeling like you are going to faint Once these symptoms begin, it is often hard to stop them because they lead to a cycle of more anxiety and more hyperventilation. It is important to understand that this is not a life-threatening condition and it will pass once you are able to relax. Relaxation and stress management methods can be learned and practiced in advance. These can help in the event of a future attack. Home Care: 1) Rest today until feeling back to normal. 2) If symptoms return: Sit or lie down. Remember that what is happening to you is temporary and will pass. Use the relaxation methods you have learned. It is no longer recommended to breathe into a paper bag. Follow Up with your doctor or as directed by our staff if symptoms recur. Get Prompt Medical Attention if any of the following occur: Increasing shortness of breath Fever of 100.0 F (38 C) or higher, or as directed by your healthcare provider Coughing up blood Chest pain that is made worse with each breath Redness, pain or swelling of the leg Ringing in your ears, Severe headache Weakness or fainting Alcohol Withdrawal Alcohol withdrawal symptoms occur if you have been drinking steadily for at least several days, and your body gets used to the effect of alcohol. When you suddenly stop drinking (or, even just cut down your daily intake but continue to drink), you may develop alcohol withdrawal, also called the The usual symptoms last 3-4 days and include nervousness, shakiness, nausea, sweating, sleeplessness. In severe cases hallucinations (seeing things that are not there) and seizures can occur. Home Care: You will need plenty of rest and fluids over the next several days. Eat regular meals. Of course, do not drink any more alcohol. During this time, it is best that you stay with family or friends who can help and support you. You can also admit yourself to a residential detox program. Do not drive until all symptoms are gone and you are feeling better. If you were given sedative medication to reduce your symptoms, do not take it more often than prescribed and never take it with alcohol. Follow Up: Once you have gone through the withdrawal symptoms, you have fought half of the alejandre. To avoid the risk of returning to your previous drinking pattern, it is essential that you get follow-up support and treatment. Alcoholics Anonymous offers support through a self-help fellowship. There are no dues or fees. See the Yellow Pages and call for time and place of meetings. www.aa.org [employer] offers support to families of alcohol users. 808.590.9434 www.al-anon.org National [place] On Alcoholism And Drug Dependence 904-012-4097 www.ncadd.org Residential alcohol detox programs are available. Check the Yellow Pages under Drug Abuse & Treatment Centers. Get Prompt Medical Attention if any of the following occur: Severe shakiness Hallucinations Seizure Fever over 100.5 F (38.0 C) oral Headache, confusion, extreme drowsiness, inability to awaken Increasing upper abdominal pain Repeated vomiting or vomiting blood Lorazepam Oral tablet What is this medicine? LORAZEPAM (william A ze polo) is a benzodiazepine. It is used to treat anxiety. How should I use this medicine? Take this medicine by mouth with a glass of water. Follow the directions on the prescription label. If it upsets your stomach, take it with food or milk. Take your medicine at regular intervals. Do not take it more often than directed. Do not stop taking except on the advice of your doctor or health memory care program resident. Talk to your proctologist regarding the use of this medicine in children. Special care may be needed. What side effects may I notice from receiving this medicine? Side effects that you should report to your doctor or health memory care program resident as soon as possible: changes in vision confusion depression mood changes, excitability or aggressive behavior movement difficulty, staggering or jerky movements muscle cramps restlessness weakness or tiredness Side effects that usually do not require medical attention (report to your doctor or health memory care program resident if they continue or are bothersome): constipation or diarrhea difficulty sleeping, nightmares dizziness, drowsiness headache nausea, vomiting What may interact with this medicine? barbiturate medicines for inducing sleep or treating seizures, like phenobarbital clozapine medicines for depression, mental problems or psychiatric disturbances medicines for sleep phenytoin probenecid theophylline valproic acid What if I miss a dose? If you miss a dose, take it as soon as you can. If it is almost time for your next dose, take only that dose. Do not take double or extra doses. Where should I keep my medicine? Keep out of the reach of children. This medicine can be abused. Keep your medicine in a safe place to protect it from theft. Do not share this medicine with anyone. Selling or giving away this medicine is dangerous and against the law. Store at room temperature between 20 and 25 degrees C (68 and 77 degrees F). Protect from light. Keep container tightly closed. Throw away any unused medicine after the expiration date. What should I tell my health care provider before I take this medicine? They need to know if you have any of these conditions: alcohol or drug abuse problem bipolar disorder, depression, psychosis or other mental health condition glaucoma kidney or liver disease lung disease or breathing difficulties myasthenia gravis Parkinson's disease seizures or a history of seizures suicidal thoughts an unusual or allergic reaction to lorazepam, other benzodiazepines, foods, dyes, or preservatives or trying to get breast-feeding What should I watch for while using this medicine? Visit your doctor or health memory care program resident for regular checks on your progress. Your body may become dependent on this medicine, ask your doctor or health memory care program resident if you still need to take it. However, if you have been taking this medicine regularly for some time, do not suddenly stop taking it. You must gradually reduce the dose or you may get severe side effects. Ask your doctor or health memory care program resident for advice before increasing or decreasing the dose. Even after you stop taking this medicine it can still affect your body for several days. You may get drowsy or dizzy. Do not drive, use machinery, or do anything that needs mental alertness until you know how this medicine affects you. To reduce the risk of dizzy and fainting spells, do not stand or sit up quickly, especially if you are an older patient. Alcohol may increase dizziness and drowsiness. Avoid alcoholic drinks. Do not treat yourself for coughs, colds or allergies without asking your doctor or health memory care program resident for advice. Some ingredients can increase possible side effects. Acetaminophen Oral tablet What is this medicine? ACETAMINOPHEN (a set a KATINA robert fen) is a pain reliever. It is used to treat mild pain and fever. How should I use this medicine? Take this medicine by mouth with a glass of water. Follow the directions on the package or prescription label. Take your medicine at regular intervals. Do not take your medicine more often than directed. Talk to your proctologist regarding the use of this medicine in children. While this drug may be prescribed for children as young as 6 years of age for selected conditions, precautions do apply. What side effects may I notice from receiving this medicine? Side effects that you should report to your doctor or health memory care program resident as soon as possible: allergic reactions like skin rash, itching or hives, swelling of the face, lips, or tongue breathing problems fever or sore throat redness, blistering, peeling or loosening of the skin, including inside the mouth trouble passing urine or change in the amount of urine unusual bleeding or bruising unusually weak or tired yellowing of the eyes or skin Side effects that usually do not require medical attention (report to your doctor or health memory care program resident if they continue or are bothersome): headache nausea, stomach upset What may interact with this medicine? alcohol imatinib isoniazid other medicines with acetaminophen What if I miss a dose? If you miss a dose, take it as soon as you can. If it is almost time for your next dose, take only that dose. Do not take double or extra doses. Where should I keep my medicine? Keep out of reach of children. Store at room temperature between 20 and 25 degrees C (68 and 77 degrees F). Protect from moisture and heat. Throw away any unused medicine after the expiration date. What should I tell my health care provider before I take this medicine? They need to know if you have any of these conditions: if you frequently drink alcohol containing drinks liver disease an unusual or allergic reaction to acetaminophen, other medicines, foods, dyes or preservatives or trying to get breast-feeding What should I watch for while using this medicine? Tell your doctor or health memory care program resident if the pain lasts more than 10 days (5 days for children), if it gets worse, or if there is a new or different kind of pain. Also, check with your doctor if a fever lasts for more than 3 days. Do not take other medicines that contain acetaminophen with this medicine. Always read labels carefully. If you have questions, ask your doctor or pharmacist. If you take too much acetaminophen get medical help right away. Too much acetaminophen can be very dangerous and cause liver damage. Even if you do not have symptoms, it is important to get help right away. You have been given the following additional information: Hypertension, To Be Confirmed Chest Pain, Noncardiac Panic Attack Hyperventilation Syndrome Alcohol Withdrawal Lorazepam Oral tablet Acetaminophen Oral tablet Do not work for two days. (Electronically signed by Felipe Ferreira DO 10/06/2016 21:44)
--- NOTE | 2016-10-07 07:21 | ED MED RECONCILIATION SUMMARY ---
Patient: SAUL TOSCANO Medication Reconciliation Report [facility] VisitID: [id number] [address] [place] [address] 31y, F Registration Date/Time: 10/06/2016 Weight: 40.8 kg Height/Length: 64 in. BMI: 15.5 ALLERGIES: Penicillins, Sulfa Antibiotics The patient's Home Medications are listed below: THE FOLLOWING MEDICATIONS NEED TO BE RECONCILED: KlonoPIN Oral PROzac Oral The source(s) of the original Home Medication information: patient The following Medications were given to the patient in the Emergency Department: Zofran [IVP] IVP 4 mg, administered: 10/06/2016 3:09:00 PM Ativan [IVP] IVP 1 mg, administered: 10/06/2016 3:15:00 PM Potassium Chloride [PO] PO 40 meq, administered: 10/06/2016 4:16:00 PM IV NS IV Fluids bolus 0, then 1000 mL/hr with Folic Acid [IVPB] 1 mg, Multivitamin [IVPB] 1 per protocol and Thiamine [IVP] 100 mg, administered: 10/06/2016 5:02:00 PM The following Medications were prescribed to the patient: Acetaminophen (available over the counter): take according to label instructions. -- Felipe Ferreira DO Ativan 1 mg: Take 1 orally every 8 hours as needed for anxiety. Dispense fifteen (15). No refills. Substitution is permissible. -- Felipe Ferreira DO
--- NOTE | 2016-10-07 07:21 | ED MAR SUMMARY ---
..... Medication Administration Record [facility] [address] [place] [address] Patient: SAUL TOSCANO Visit ID: [id number] 31y, F Weight: 40.8 kg Height/Length: 64 in BMI: 15.5 ALLERGIES: Sulfa Antibiotics, Penicillins Given 15:09 10/06/2016 Teodoro Cleveland R.N. Medication Administered: ZOFRAN [IVP] (ONDANSETRON HCL), Dose: 4 mg IVP over 2 minute(s), Site: #1 right AC. Medication Ordered: Zofran IV 4 mg (NOW). Given 15:15 10/06/2016 Zachary Perez R.N. Medication Administered: ATIVAN [IVP] (LORAZEPAM), Dose: 1 mg IVP over 1 minute(s), Site: #1 right AC. Medication Ordered: Ativan IV 1 mg (HIGH ALERT MEDICATION, NOW). Given 16:16 10/06/2016 Carmen Najera R.N. Medication Administered: POTASSIUM CHLORIDE [PO] (POTASSIUM CHLORIDE ER), Dose: 40 meq Tablets PO. Medication Ordered: Potassium Chloride PO 40 meq (NOW). Start 17:02 10/06/2016 Teodoro Cleveland R.N., Stop 18:08 10/06/2016 Carmen Najera R.N. Medication Administered: IV NS (SALINE), Dose: IV Fluids over 1 hour(s), With: FOLIC ACID [IVPB] 1 mg; MULTIVITAMIN [IVPB] 1 per protocol; THIAMINE [IVP] 100 mg, Rate: 1000 mL/hr, Dispensed: 1000 mL bag, Site: #1 right AC. Medication Ordered: IV NS with Normal Saline 1 Liter, Folic Acid 1 mg/mL, Multivitamin Concentrate Intravenous 1 amp/L, Thiamine HCl 100 mg/L: initial bolus 1000 mL (1000 mL/hr), then TKO - (NOW).
--- NOTE | 2016-10-07 07:21 | ED MED RECONCILIATION SUMMARY ---
Patient: SAUL TOSCANO Medication Reconciliation Report [facility] VisitID: [id number] [address] [place] [address] 31y, F Registration Date/Time: 10/06/2016 Weight: 40.8 kg Height/Length: 64 in. BMI: 15.5 ALLERGIES: Penicillins, Sulfa Antibiotics The patient's Home Medications are listed below: THE FOLLOWING MEDICATIONS NEED TO BE RECONCILED: KlonoPIN Oral PROzac Oral The source(s) of the original Home Medication information: patient The following Medications were given to the patient in the Emergency Department: Zofran [IVP] IVP 4 mg, administered: 10/06/2016 3:09:00 PM Ativan [IVP] IVP 1 mg, administered: 10/06/2016 3:15:00 PM Potassium Chloride [PO] PO 40 meq, administered: 10/06/2016 4:16:00 PM IV NS IV Fluids bolus 0, then 1000 mL/hr with Folic Acid [IVPB] 1 mg, Multivitamin [IVPB] 1 per protocol and Thiamine [IVP] 100 mg, administered: 10/06/2016 5:02:00 PM The following Medications were prescribed to the patient: Acetaminophen (available over the counter): take according to label instructions. -- Felipe Ferreira DO Ativan 1 mg: Take 1 orally every 8 hours as needed for anxiety. Dispense fifteen (15). No refills. Substitution is permissible. -- Felipe Ferreira DO
== END 2016-10-06 18:10 | disposition home or self-care (01) ==
LOC: ED SRH 14:50
DX: R07.2 Precordial pain (principal); F41.0 Panic disorder [episodic paroxysmal anxiety]; F10.180 Alcohol abuse with alcohol-induced anxiety disorder; F10.239 Alcohol dependence with withdrawal, unspecified; I10 Essential (primary) hypertension; F12.180 Cannabis abuse with cannabis-induced anxiety disorder; R45.1 Restlessness and agitation; Z79.899 Other long term (current) drug therapy; Z88.0 Allergy status to penicillin; Z88.2 Allergy status to sulfonamides
CPT/HCPCS: 90004; 90100; 90616; 90617; 91320; 91556; 92010; 92235; 92530; 92610; 92720; 92760; 92761; 92762; 92763; 92764; 92765; 92766; 92767; 93070; 93140; 95059